=== PATIENT | male | born 1990 | race Caucasian/White ===

== ENCOUNTER 2016-05-19 09:58 | Emergency (ER) | payer OTHER ==
[~2016-05-19] VITALS: Ht 167.6 cm; Wt 70.0 kg
[2016-05-19 10:01] VITALS: BP 130/60; PULSE 65; RESP 16; O2SAT 95
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
== END 2016-05-19 11:18 | disposition home or self-care (01) ==
LOC: SED 09:58
DX: S00.83XA Contusion of other part of head, initial encounter (principal); Y04.0XXA Assault by unarmed brawl or fight, initial encounter; Y93.89 Activity, other specified; Y92.238 Other place in hospital as the place of occurrence of the external cause; Y99.0 Civilian activity done for income or pay; Z88.6 Allergy status to analgesic agent